=== PATIENT | male | born 1990 | race American Indian/Alaskan Native ===

== ENCOUNTER 2020-05-28 13:20 | Emergency (ER) ==
[2020-05-28 13:35] VITALS: BP 154/91
--- NOTE | 2020-05-28 14:00 | Emergency Department Report ---
Chief Complaint: Urogenital-Male Stated Complaint: STD CHECK - HPI History of Present Illness: 30-year-old -[place] male presents to the emergency room for STD check. Patient reports has a 2-day history of slight penile discharge. Denies any fever chills no nausea no vomiting no abdominal pain. - Exam Vital Signs: Vital Signs 05/28/20 13:32 Temperature 98.4 F Pulse Rate 69 Respiratory 20 Rate Blood Pressure 154/91 O2 Sat by Pulse 100 Oximetry Physical Exam: Alert and oriented x3 no acute distress nontoxic in appearance Nonlabored breathing no accessory muscles use Ambulatory without difficulties. MSE screening note: Focused history and physical exam performed. Due to findings the following was ordered: 30-year-old -[place] male presents to the emergency room for STD check. Patient reports has a 2-day history of slight penile discharge. Denies any fever chills no nausea no vomiting no abdominal pain. Referral to health department urgent care. ED Disposition for MSE Disposition: MED SCREENING EXAM-LEFT Is pt being admited?: No Does the pt Need Aspirin: No Condition: Stable Referrals: [facility] [Outside] - 3-5 Days [facility] [Outside] - 3-5 Days
== END 2020-05-28 14:24 | disposition left against medical advice (07) ==
LOC: ED 13:20